=== PATIENT | male | born 1990 | race Caucasian/White ===

== ENCOUNTER 2018-04-29 12:38 | Emergency (ER) | payer SELFPAY ==
--- NOTE | 2018-04-29 14:34 | EDM.PDOC ---
ED HPI GENERAL MEDICAL PROBLEM - General Chief Complaint: ENT Problem Stated Complaint: TOOTH PAIN Time Seen by Provider: 04/29/18 14:09 Source of Information: Reports: Patient History Limitations: Reports: No Limitations - History of Present Illness INITIAL COMMENTS - FREE TEXT/NARRATIVE: 19-year-old male presents for evaluation and treatment of dental pain. Reports pain is located in the right lower side. He has poor dentition, often has dental pain, but this acute episode started a few days ago. He states his from a broken wisdom tooth. He has not seen a dentist in several years. He has been taking [id number] Tylenol, Motrin and Orajel without any relief. He is also been using salt water rinses which is not giving him much relief. He then point is to see a dentist on Tuesday. He denies any fevers, chills, nausea or vomiting. No facial swelling. Reports he is getting bad taste in his mouth. Right Oral/Mouth Pain Score (Numeric/FACES): 10 - Related Data Allergies Allergy/AdvReac Type Severity Reaction Status Date / Time No Known Allergies Allergy Verified 04/29/18 13:27 Home Meds: Home Meds Acetaminophen/HYDROcodone [[place] 325-5 MG] 1 tab PO Q4H PRN #15 tablet 04/29/18 [Rx] Amoxicillin/Potassium Clav [Augmentin 875-125 Tablet] 1 each PO BID #20 tablet 04/29/18 [Rx] Past Medical History Other HEENT History: broken jaw - Past Surgical History Other Musculoskeletal Surgeries/Procedures:: knee surgery Social & Family History - Tobacco Use Smoking Status *Q: Current Every Day Smoker Years of Tobacco use: 15 Packs/Tins Daily: 0.5 - Caffeine Use Caffeine Use: Reports: Coffee, Energy Drinks, Soda - Recreational Drug Use Recreational Drug Use: No ED ROS ENT - Review of Systems Review Of Systems: See Below Constitutional: Denies: Fever, Chills HEENT: Reports: Dental Pain (right lower wisdom tooth), Other (denies any facial swelling) GI/Abdominal: Denies: Nausea, Vomiting ED EXAM, ENT - Physical Exam Exam: See Below Exam Limited By: No Limitations General Appearance: Alert, WD/WN, Moderate Distress, Thin Eye Exam: Bilateral Eye: Normal Inspection Ears: Normal External Exam, Normal Canal, Hearing Grossly Normal, Normal TMs Nose: Normal Inspection Mouth/Throat: Normal Inspection, Normal Lips, Normal Oropharynx, Dental Abcess ( #32), Dental Pain (#32), Dental Tenderness (#32), Other (poor dentition throughout) Head: Facial Swelling Neck: Normal Inspection, Non-Tender, Lymphadenopathy (L). No: Lymphadenopathy ( R) Respiratory/Chest: No Respiratory Distress, Lungs Clear, Normal Breath Sounds Cardiovascular: Normal Peripheral Pulses, Regular Rate, Rhythm Neurological: Alert, Oriented, Normal Cognition Psychiatric: Normal Affect, Normal Mood Skin: Warm, Dry, Normal Color Course - Vital Signs Last Recorded V/S: Last Vital Signs Temp 98.1 F 04/29/18 13:23 Pulse 92 04/29/18 13:23 Resp 16 04/29/18 13:23 BP 142/90 H 04/29/18 13:23 Pulse Ox 100 04/29/18 13:23 Departure - Departure Time of Disposition: 14:29 Disposition: Home, Self-Care 01 Condition: Fair Clinical Impression: Dental abscess, Pain, dental - Discharge Information *PRESCRIPTION DRUG MONITORING PROGRAM REVIEWED*: No *COPY OF PRESCRIPTION DRUG MONITORING REPORT IN PATIENT MYAH: No Prescriptions: Acetaminophen/HYDROcodone [[place] 325-5 MG] 1 tab PO Q4H PRN #15 tablet PRN Reason: Pain Amoxicillin/Potassium Clav [Augmentin 875-125 Tablet] 1 each PO BID #20 tablet Instructions: Dental Abscess Referrals: PCP,None [Primary Care Provider] - Forms: ED Department Discharge Additional Instructions: Follow-up with your dentist Tuesday as planned. [id number]-[id number] ibuprofen as needed for pain relief. 600 mg every 6 hours of pain. For pain not relieved by ibuprofen, may take norco 1 tab PO every 4-6 hours. Cool Ridge is habit forming, take as few of these as needed to control your pain. Do not drive or operate machinery within 10 hours of taking norco. augmentin 1 tab PO bid x 10 days. Take with food. Recommend yogurt or a probiotic to reduce side effects of upset stomach, nausea and diarrhea. Recommend trying something such as clove oil or Orajel. These are available over -the-counter. Please return to the ER for symptoms change or worsen.
== END 2018-04-29 14:50 | disposition home or self-care (01) ==
LOC: JD.ED 12:38
DX: K04.7 Periapical abscess without sinus (principal); F17.210 Nicotine dependence, cigarettes, uncomplicated
CPT/HCPCS: 99283